=== PATIENT | female | born 1930 | race Caucasian/White ===

== ENCOUNTER → 2016-10-18 | Outpatient (CLI) | payer OTHER ==
[~2016-10-18] MED LIST: AMIO200T4 PO; ASPI-435 PO; ATOR-26 PO; FRS/40 PO; GLUCTAB7 PO; ISOS60TA2 PO; LEVO50TA6 PO; LNX125 PO; LOSA1TAB PO; LPR50X PO; LPT40 PO; METO-551 PO; MULT-506 PO; NITR0.4S UT; PANT40TA PO; POTA1CAP2 PO; PSYL48.59; RIVA1TAB4 PO
[2016-10-18 13:21] LABS: HEMATOCRIT 40.4 % (37-47); MEAN CELL VOLUME 100.2 fL (80-100); MEAN CORPUSCULAR HEMOGLOBIN 32.8 pg (25-34); MEAN CORPUSCULAR HGB CONC 32.7 g/dl (32-36); MEAN PLATELET VOLUME 11.1 fL (7.4-10.4); PLATELET COUNT 216 K/uL (130-400); RED BLOOD COUNT 4.03 M/uL (4.2-5.4)
== END | disposition home or self-care (01) ==
LOC: C.LABMFLN 12:05
PROVIDERS: ATTEND Internal Medicine Cardiovascular Disease
DX: R53.83 Other fatigue (principal)

== ENCOUNTER → 2016-10-30 | Outpatient (CLI) | payer OTHER | END | disposition home or self-care (01) | LOC: C.LABMFLN 08:58 | PROVIDERS: ATTEND Family Medicine | DX: R06.09 Other forms of dyspnea (principal) ==

== ENCOUNTER → 2016-11-09 | Outpatient (CLI) | payer OTHER ==
[2016-11-09 18:04] LABS: BLOOD UREA NITROGEN 24 mg/dl (7-18); BUN/CREATININE RATIO 24.4 (10-20); CALCIUM 9.3 mg/dl (8.5-10.1); CARBON DIOXIDE 35 mmol/L (21-32); CHLORIDE 104 mmol/L (98-107); GLUCOSE 97 mg/dl (70-99); MAGNESIUM 2.6 mg/dl (1.8-2.4); POTASSIUM 3.9 mmol/L (3.5-5.1); SODIUM 143 mmol/L (136-145)
== END | disposition home or self-care (01) ==
LOC: C.LABMFLN 11:08
PROVIDERS: ATTEND Family Medicine
DX: I25.10 Atherosclerotic heart disease of native coronary artery without angina pectoris (principal); M79.89 Other specified soft tissue disorders; I48.91 Unspecified atrial fibrillation

== ENCOUNTER → 2016-11-23 | Day surgery (SDC) | payer OTHER ==
[~2016-11-23] VITALS: Ht 149.9 cm; Wt 75.0 kg
[~2016-11-23] MED LIST changes: +LIDOCAINE HCL 2% 2 ML VIAL (20MG/ML) ONE; +PROPOFOL IV EMULSION 10 MG/ML 20 ML VIAL IV ONE
[2016-11-23 07:06] VITALS: Ht 149.9 cm; Wt 75.0 kg
[2016-11-23 07:19] VITALS: BP 149/75; PULSE 62; TEMP 36.5; O2SAT 98
[2016-11-23 07:28] VITALS: BP 120/54; PULSE 69; O2SAT 99
[2016-11-23 07:29] VITALS: BP 116/60; PULSE 52; O2SAT 99
--- NOTE | 2016-11-23 07:39 | Anesthesiology Progress Note ---
Anesthesia Post Op Note Date & Time November 23, 2016 at 07:39 Vital Signs Pain Intensity: 0 Vital Signs Past 12 Hours Date Time Temp Pulse Resp B/P Pulse Ox O2 Delivery O2 Flow Rate FiO2 11/23/16 07:29 52 16 116/60 99 Nasal Cannula 4 11/23/16 07:29 50 16 106/52 96 Nasal Cannula 4 11/23/16 07:28 74 16 125/66 96 Nasal Cannula 4 11/23/16 07:28 69 16 120/54 99 Nasal Cannula 4 11/23/16 07:19 36.5 62 16 149/75 98 Room Air Notes Mental Status: alert / awake / arousable, participated in evaluation Pt Amnestic to Procedure: Yes Nausea / Vomiting: adequately controlled Pain: adequately controlled Airway Patency, RR, SpO2: stable & adequate BP & HR: stable & adequate Hydration State: stable & adequate Anesthetic Complications: no major complications apparent
--- NOTE | 2016-11-23 07:49 | Discharge Instructions ---
Discharge Instructions Procedure Procedure Date: November 23, 2016. Reason for Visit: W/Trav[facility] Afib Dr Lane. Discharge Discharge Date: November 23, 2016. Discharge Diagnosis: Cardioversion of atrial fibrillation Last Recorded Wt (Kilograms): 75 Anesthesia Post Anesthesia Instructions: If you have had General Anesthesia or IV Sedation: * Do not drive today. * Resume driving when surgeon permits. * Do not make important decisions or sign legal documents today. * Call surgeon for: 1. Temperature elevations greater than 101 degrees F. 2. Uncontrollable pain. 3. Excessive bleeding. 4. Persistent nausea and vomiting. 5. Medication intolerance (nausea, vomiting or rash). * For nausea and vomiting use only clear liquids such as: tea, soda, bouillon until nausea subsides, then gradually increase diet as tolerated. * If you have any concerns or questions, call your surgeon's office. If physician is unavailable and it is an emergency, call 911 or go to the nearest emergency room. Instructions Activity Recommendations: resume regular activity Recommended Home Diet: resume previous diet, low sodium, low cholesterol Allergies: Coded Allergies: No Known Allergies (Verified Allergy, Unknown, 09/21/02) Follow Up Additional Instructions: Call Dr. Lane's office at [phone] for any questions or problems Follow-up with: Follow up with Dr. Lane as scheduled [facility] Recommendations: Call your doctor if: * Temperature above 101 degrees * Pain not relieved by pain medicine ordered * There is increased drainage or redness from any incision * You have any unanswered questions or concerns. Your Doctors Instructions noted above were prepared by provider Caesar Lane. Patient Signature Section: Patient Instructions Signature Page Licha Newby Patient (or Guardian) Signature/Date: I have read and understand the instructions given to me by my caregivers. Caregiver/RN/Doctor Signature/Date: The above-named patient and/or guardian has received patient instructions on this date. + Original Patient Signature Page (only) stays with chart. Please make copy for patient.
--- NOTE | 2016-11-23 07:51 | History & Physical Bridge Note ---
H&P Re-Evaluation Bridge Note: I have examined the patient, reviewed the History & Physical and in the interval since the performance of the History & Physical I have noted the following changes of clinical significance: No changes noted. Patient still in atrial fibrillation this morning. Will proceed with electrical cardioversion.
--- NOTE | 2016-11-23 08:12 | CARDIOVERSION ---
DATE OF OPERATION: 11/23/2016 DATE OF PROCEDURE: 11/23/2016. PROCEDURE: Elective electrical cardioversion. CLINICAL INDICATIONS: Persistent atrial fibrillation. PROCEDURE PERFORMED BY: Caesar Lane M.D. PROTOCOL: The patient had anterior and posterior transcutaneous Electro Patches placed on her. After intravenous sedation was achieved under the direction of Dr. Dwayne Anne, the patient underwent electrical cardioversion with 200 joules of synchronized biphasic energy. She awoke a few minutes later without any complaints. A post cardioversion electrocardiogram was obtained. RESULTS: With the single electrical shock her rhythm was converted from atrial fibrillation to sinus bradycardia. The electrocardiogram post procedure confirmed this. COMPLICATIONS: None. The patient awoke a few minutes after completion of the cardioversion. She had no complaints. She was hemodynamically stable throughout the procedure. Her oxygen saturation was stable throughout the procedure. She awoke without any complaints. No neurologic or cardiac symptoms or signs noted. PLAN: The patient will be recovered in the cardiac catheterization laboratory recovery unit. She will be discharged home this morning. She will continue her usual medications including anticoagulation therapy. She will have outpatient followup with Dr. Lane as scheduled. I attest to the content of the Intraoperative Record and any orders documented therein. Any exceptio ns are noted below.
[2016-11-23 08:30] VITALS: BP 110/58; PULSE 55; O2SAT 97
== END | disposition home or self-care (01) ==
LOC: C.CATH 06:54
PROVIDERS: ATTEND Internal Medicine Cardiovascular Disease
DX: I48.1 Persistent atrial fibrillation (principal); Z79.01 Long term (current) use of anticoagulants; I25.10 Atherosclerotic heart disease of native coronary artery without angina pectoris; I11.0 Hypertensive heart disease with heart failure; I50.9 Heart failure, unspecified; I34.0 Nonrheumatic mitral (valve) insufficiency; E78.5 Hyperlipidemia, unspecified; I07.1 Rheumatic tricuspid insufficiency; K21.9 Gastro-esophageal reflux disease without esophagitis; E03.9 Hypothyroidism, unspecified; G89.29 Other chronic pain; M54.5 Low back pain; H90.8 Mixed conductive and sensorineural hearing loss, unspecified; E87.5 Hyperkalemia; Z95.1 Presence of aortocoronary bypass graft; Z79.82 Long term (current) use of aspirin; Z79.899 Other long term (current) drug therapy

== ENCOUNTER → 2016-12-28 | Day surgery (SDC) | payer OTHER ==
[~2016-12-28] VITALS: Ht 149.9 cm; Wt 74.0 kg
[~2016-12-28] MED LIST changes: -LIDOCAINE HCL 2% 2 ML VIAL (20MG/ML) ONE
[2016-12-28 07:07] VITALS: BP 153/70; PULSE 67; TEMP 36.3; O2SAT 96; Ht 149.9 cm; Wt 74.0 kg
[2016-12-28 07:35] VITALS: BP 153/70; PULSE 49; O2SAT 100
[2016-12-28 07:40] VITALS: BP 130/67; PULSE 56; O2SAT 100
[2016-12-28 07:41] VITALS: BP 113/39; PULSE 47; O2SAT 100
[2016-12-28 07:45] VITALS: BP 109/42; PULSE 49; O2SAT 100
--- NOTE | 2016-12-28 08:05 | History & Physical Bridge Note ---
H&P Re-Evaluation Bridge Note: I have examined the patient, reviewed the History & Physical and in the interval since the performance of the History & Physical I have noted the following changes of clinical significance: No changes noted
--- NOTE | 2016-12-28 08:08 | Anesthesiology Progress Note ---
Anesthesia Post Op Note Date & Time Dec 28, 2016 at 08:07 Vital Signs Pain Intensity: 0 Vital Signs Past 12 Hours Date Time Temp Pulse Resp B/P (MAP) Pulse Ox O2 Delivery O2 Flow Rate FiO2 12/28/16 07:48 49 18 102/42 (62) 95 Room Air 12/28/16 07:45 49 22 109/42 100 Nasal Cannula 4 12/28/16 07:41 47 22 113/39 100 Nasal Cannula 4 12/28/16 07:40 56 22 130/67 100 Nasal Cannula 4 12/28/16 07:35 49 22 153/70 100 Nasal Cannula 4 12/28/16 07:07 36.3 67 16 153/70 96 Room Air Notes Mental Status: alert / awake / arousable, participated in evaluation Pt Amnestic to Procedure: Yes Nausea / Vomiting: adequately controlled Pain: adequately controlled Airway Patency, RR, SpO2: stable & adequate BP & HR: stable & adequate Hydration State: stable & adequate Anesthetic Complications: no major complications apparent
--- NOTE | 2016-12-28 08:16 | Discharge Instructions ---
Discharge Instructions Procedure Procedure Date: Dec 28, 2016. Reason for Visit: *W/Anesthesia*, Dr Lane To Do, Afib. Discharge Discharge Date: Dec 28, 2016. Discharge Diagnosis: Atrial fibrillation. Electrical cardioversion. Last Recorded Wt (Kilograms): 74 Anesthesia Post Anesthesia Instructions: If you have had General Anesthesia or IV Sedation: * Do not drive today. * Resume driving when surgeon permits. * Do not make important decisions or sign legal documents today. * Call surgeon for: 1. Temperature elevations greater than 101 degrees F. 2. Uncontrollable pain. 3. Excessive bleeding. 4. Persistent nausea and vomiting. 5. Medication intolerance (nausea, vomiting or rash). * For nausea and vomiting use only clear liquids such as: tea, soda, bouillon until nausea subsides, then gradually increase diet as tolerated. * If you have any concerns or questions, call your surgeon's office. If physician is unavailable and it is an emergency, call 911 or go to the nearest emergency room. Instructions Activity Recommendations: resume regular activity, driving or machine use limit (no driving until 12/29/2016) Recommended Home Diet: low sodium, low cholesterol Allergies: Coded Allergies: Lisinopril (Unverified Allergy, Intermediate, ., 12/28/16) Uncoded Allergies: SULFA (Allergy, Unknown, ., 12/28/16) Provider Instructions Call Dr. Lane's office at [phone] for any questions or problems Follow Up Follow-up with: Follow up with Dr. Lane as scheduled [facility] Recommendations: Call your doctor if: * Temperature above 101 degrees * Pain not relieved by pain medicine ordered * There is increased drainage or redness from any incision * You have any unanswered questions or concerns. Your Doctors Instructions noted above were prepared by provider Caesar Lane. Patient Signature Section: Patient Instructions Signature Page Licha Newby Patient (or Guardian) Signature/Date: I have read and understand the instructions given to me by my caregivers. Caregiver/RN/Doctor Signature/Date: The above-named patient and/or guardian has received patient instructions on this date. + Original Patient Signature Page (only) stays with chart. Please make copy for patient.
[2016-12-28 08:30] VITALS: BP 126/65; PULSE 65; O2SAT 57
--- NOTE | 2016-12-28 09:24 | CARDIOVERSION ---
DATE OF OPERATION: 12/28/2016 DATE OF PROCEDURE: 12/28/2016. PROCEDURE: Elective electrical cardioversion. CLINICAL INDICATIONS: Atrial fibrillation. PROCEDURE PERFORMED BY: Caesar Lane M.D. The patient had previously undergone electrical cardioversion for atrial fibrillation. She reverted back to atrial fibrillation a few days later. She was then started on amiodarone 200 mg daily. She now returns for repeat electrical cardioversion on amiodarone therapy. PROTOCOL: The patient was given adequate deep sedation by the anesthesiologist. Intravenous propofol was administered. Anterior and posterior transcutaneous Electro Patches had been placed on the patient's thorax. After deep sedation was obtained she was given 1 shock of 150 joules of synchronized biphasic energy. Her rhythm converted to sinus rhythm and sinus bradycardia with premature supraventricular beats. She was hemodynamically stable throughout the procedure. She awoke a few minutes later without any complaints. No cardiac or neurologic complaints. Her oxygen saturation and vital signs were stable. Approximately 20 minutes after the initially successful electrical cardioversion her rhythm reverted back to atrial fibrillation with a slow to controlled ventricular response. She remained hemodynamically stable. CONCLUSIONS: 1. Initially successful electrical cardioversion of atrial fibrillation to sinus rhythm. 2. Reversion back to atrial fibrillation approximately 20 minutes after the initially successful cardioversion. PLAN: 1. The patient will be discharged to home. 2. Her amiodarone will be increased from 200 mg daily to 200 mg b.i.d. 3. Her metoprolol tartrate dose will be decreased to 25 mg b.i.d. 4. Her digoxin will be discontinued. 5. She will have outpatient followup with me in approximately 4 weeks. 6. After she is on amiodarone 200 mg b.i.d. for 4 weeks and if she continues in atrial fibrillation she will then undergo another attempt at electrical cardioversion. I attest to the content of the Intraoperative Record and any orders documented therein. Any exception s are noted below.
== END | disposition home or self-care (01) ==
LOC: C.CATH 06:14
PROVIDERS: ATTEND Internal Medicine Cardiovascular Disease
DX: I48.91 Unspecified atrial fibrillation (principal); I25.10 Atherosclerotic heart disease of native coronary artery without angina pectoris; I10 Essential (primary) hypertension; R06.09 Other forms of dyspnea; R00.2 Palpitations; K21.9 Gastro-esophageal reflux disease without esophagitis; E78.5 Hyperlipidemia, unspecified; E03.9 Hypothyroidism, unspecified; I34.0 Nonrheumatic mitral (valve) insufficiency; Z79.01 Long term (current) use of anticoagulants; Z79.82 Long term (current) use of aspirin

== ENCOUNTER → 2017-01-28 | Day surgery (SDC) | payer OTHER ==
[~2017-01-28] VITALS: Ht 152.4 cm; Wt 75.0 kg
[2017-01-28] VITALS (9 sets, daily range): BP systolic 72–152; BP diastolic 34–84; PULSE 47–93; TEMP 36.5; O2SAT 95–100; Ht 152.4 cm; Wt 75.0 kg
[~2017-01-28] MED LIST changes: -LNX125 PO; -LPR50X PO; -LPT40 PO; -PROPOFOL IV EMULSION 10 MG/ML 20 ML VIAL IV ONE
--- NOTE | 2017-01-28 08:06 | Discharge Instructions ---
Discharge Instructions Procedure Procedure Date: Jan 28, 2017. Reason for Visit: A Fib * *W/Anesthesia. Discharge Discharge Date: Jan 28, 2017. Discharge Diagnosis: Atrial fibrillation, cardioversion Last Recorded Wt (Kilograms): 75 Anesthesia Post Anesthesia Instructions: If you have had General Anesthesia or IV Sedation: * Do not drive today. * Resume driving when surgeon permits. * Do not make important decisions or sign legal documents today. * Call surgeon for: 1. Temperature elevations greater than 101 degrees F. 2. Uncontrollable pain. 3. Excessive bleeding. 4. Persistent nausea and vomiting. 5. Medication intolerance (nausea, vomiting or rash). * For nausea and vomiting use only clear liquids such as: tea, soda, bouillon until nausea subsides, then gradually increase diet as tolerated. * If you have any concerns or questions, call your surgeon's office. If physician is unavailable and it is an emergency, call 911 or go to the nearest emergency room. Instructions Activity Recommendations: resume regular activity Recommended Home Diet: low sodium, low cholesterol Allergies: Coded Allergies: Lisinopril (Unverified Allergy, Intermediate, ., 12/28/16) Uncoded Allergies: SULFA (Allergy, Unknown, ., 12/28/16) Follow Up Follow-up with: Follow up with Dr. Lane as scheduled. Call Dr. Lane at [phone] for any questions. [facility] Recommendations: Call your doctor if: * Temperature above 101 degrees * Pain not relieved by pain medicine ordered * There is increased drainage or redness from any incision * You have any unanswered questions or concerns. Your Doctors Instructions noted above were prepared by provider Caesar Lane. Patient Signature Section: Patient Instructions Signature Page Licha Newby Patient (or Guardian) Signature/Date: I have read and understand the instructions given to me by my caregivers. Caregiver/RN/Doctor Signature/Date: The above-named patient and/or guardian has received patient instructions on this date. + Original Patient Signature Page (only) stays with chart. Please make copy for patient.
--- NOTE | 2017-01-28 08:50 | Anesthesiology Progress Note ---
Anesthesia Post Op Note Date & Time Jan 28, 2017 at 08:47 Vital Signs Pain Intensity: 0 Vital Signs Past 12 Hours Date Time Temp Pulse Resp B/P (MAP) Pulse Ox O2 Delivery O2 Flow Rate FiO2 01/28/17 08:30 54 16 100/48 (65) 96 Room Air 01/28/17 08:15 58 16 102/62 (75) 96 Room Air 01/28/17 08:00 53 16 91/44 (60) 96 Room Air 01/28/17 07:55 53 18 94/42 96 Room Air 01/28/17 07:50 52 16 89/45 95 Room Air 01/28/17 07:45 47 16 72/34 100 Nasal Cannula 4 01/28/17 07:43 48 16 110/62 100 Nasal Cannula 4 01/28/17 07:40 82 16 124/84 100 Nasal Cannula 4 01/28/17 07:35 79 16 130/70 100 Nasal Cannula 4 01/28/17 07:30 84 16 128/75 100 Nasal Cannula 4 01/28/17 07:02 36.5 93 18 152/84 98 Room Air Notes Mental Status: alert / awake / arousable, participated in evaluation Pt Amnestic to Procedure: Yes Nausea / Vomiting: adequately controlled Pain: adequately controlled Airway Patency, RR, SpO2: stable & adequate BP & HR: stable & adequate Hydration State: stable & adequate Anesthetic Complications: no major complications apparent 18G IV was placed by the record label internship staff and was free flowing without pain. Patient had no response to 40mg IV propofol at which point the IV site was examined and felt to be probably infiltrated. The catheter was aspirated and removed and a second 22G IV was placed in the L hand. This was used without incident for the case. I spoke with the patient and explained signs of infection and necrosis to be aware and to seek prompt medical evaluation if these signs present over the next few days. I also relayed these instructions to her friend who presented with her to the hospital today.
--- NOTE | 2017-01-28 10:17 | Cardioversion ---
Electricial Cardioversion Rpt Date of Service: 01/28/17 Electrical Cardioversion Rprt Indications: Persistent atrial fibrillation. Procedure: After deep sedation with propofol ( given by anesthesiologist), one shock of 150 joules synchronized biphasic energy given by transcutaneous electrode pads anteriorly and posteriorly placed on thorax. Results: Rhythm converted to sinus bradycardia. The electrocardiogram post conversion showed sinus bradycardia rate of 47 beats per minute. Normal CA interval. post procedure the patient initially had a low blood pressure. This subsequently improved. She had no neurologic complaints or any other symptoms suggestive of a thromboembolic event post procedure. At the time of discharge she was hemodynamically stable. Complications: none. Plan: DC metoprolol secondary to sinus bradycardia. Continue amiodarone 200 mg PO BID and Xarelto. Outpatient follow up with me.
== END | disposition home or self-care (01) ==
LOC: C.CATH 06:20
PROVIDERS: ATTEND Internal Medicine Cardiovascular Disease
DX: I48.1 Persistent atrial fibrillation (principal); I25.10 Atherosclerotic heart disease of native coronary artery without angina pectoris; R00.1 Bradycardia, unspecified; T44.7X5A Adverse effect of beta-adrenoreceptor antagonists, initial encounter; M54.5 Low back pain; G89.29 Other chronic pain; I10 Essential (primary) hypertension; I08.1 Rheumatic disorders of both mitral and tricuspid valves; M79.89 Other specified soft tissue disorders; K21.9 Gastro-esophageal reflux disease without esophagitis; E87.5 Hyperkalemia; E78.5 Hyperlipidemia, unspecified; E03.9 Hypothyroidism, unspecified; H90.8 Mixed conductive and sensorineural hearing loss, unspecified; Z79.899 Other long term (current) drug therapy; Z79.01 Long term (current) use of anticoagulants; Z95.1 Presence of aortocoronary bypass graft

== ENCOUNTER → 2017-05-20 | Outpatient (CLI) | payer OTHER ==
[~2017-05-20] MED LIST changes: -AMIO200T4 PO; -ASPI-435 PO; -METO-551 PO
== END | disposition home or self-care (01) ==
LOC: C.LABMFLN 11:03
PROVIDERS: ATTEND Family Medicine
DX: E03.9 Hypothyroidism, unspecified (principal)

== ENCOUNTER → 2018-03-04 | Outpatient (CLI) | payer OTHER ==
[2018-03-04 17:45] LABS: BASO % 0.2 %; BASO ABS # 0.02 K/uL (0-0.2); EOS % 1.6 %; EOS ABS # 0.13 K/uL (0-0.5); HEMATOCRIT 42.5 % (37-47); HEMOGLOBIN 14.1 g/dL (12.0-16.0); IG# 0.01 K/uL (0.00-0.02); LYMPH % 19.7 %; LYMPH ABS # 1.58 K/uL (1.2-3.4); MEAN CELL VOLUME 99.1 fL (80-100); MEAN CORPUSCULAR HEMOGLOBIN 32.9 pg (25-34); MEAN CORPUSCULAR HGB CONC 33.2 g/dl (32-36); MEAN PLATELET VOLUME 11.5 fL (7.4-10.4); MONO % 11.7 %; MONO ABS # 0.94 K/uL (0.11-0.59); NEUT % 66.7 %; NEUT ABS # 5.35 K/uL (1.4-6.5); PLATELET COUNT 214 K/uL (130-400); RED CELL DISTRIBUTION WIDTH CV 15.3 % (11.5-14.5); RED CELL DISTRIBUTION WIDTH SD 55.4 fL (36.4-46.3); WHITE BLOOD COUNT 8.03 K/uL (4.8-10.8)
== END | disposition home or self-care (01) ==
LOC: C.LABMFLN 15:02
PROVIDERS: ATTEND Family Medicine
DX: R07.89 Other chest pain (principal); I50.9 Heart failure, unspecified; R05 Cough